=== PATIENT | female | born 1970 | race Caucasian/White ===

== ENCOUNTER 2016-02-21 01:28 | Emergency (ER) | payer OTHER, MEDICAID ==
[~2016-02-21] VITALS: Ht 157.5 cm; Wt 68.8 kg
[2016-02-21 01:32] VITALS: BP 115/82; PULSE 100; RESP 18; TEMP 98.1; O2SAT 98
--- NOTE | 2016-02-21 02:00 | PD ---
HPI Chief Complaint: Fall Time Seen by Provider: 01:49 Travel History International Travel<30 days: Yes Contact w/Intl Traveler<30days: Yes Traveled to known affect area: Yes History of Present Illness HPI The patient is a 45-year-old female who tripped and fell at approximately 1:00 this morning. She fell on her left arm and complains of left shoulder and left wrist pain. She denies any elbow pain. She denies any previous fracture/ surgery to the left shoulder or left wrist. She denies any C-spine, T-spine or LS-spine pain. She feels numbness over the entire arm below the shoulder. She apparently was drinking Capt. Murali mejia. [facility] Past Medical History Medical History: Denies Significant Hx Diminished Hearing: No Tetanus Vaccination: Unknown Influenza Vaccination: No ?: Unknown LMP: 01/21/16 Tubal Ligation: Yes Past Surgical History Surgical History: No Previous Surgery Social History Alcohol Use: Yes (ETOH TONIGHT) Tobacco Use: Yes (1 PPD) Substance Use: No Allergies-Medications (Allergen,Severity, Reaction): Coded Allergies: No Known Allergies (Unverified , 02/21/16) Reported Meds & Prescriptions Reported Meds & Active Scripts Active No Active Prescriptions or Reported Medications Review of Systems Except as stated in HPI: all other systems reviewed are Neg Physical Exam Narrative GENERAL: Well-nourished, well-developed patient in moderate apparent distress with her left shoulder pain. Her vital signs show heart rate of 100 but otherwise normal. She smells strongly of rum. She answers questions quickly and appropriately. SKIN: Warm and dry. HEAD: Normocephalic. EYES: No scleral icterus. No injection or drainage. NECK: Supple, trachea midline. No JVD or lymphadenopathy. CARDIOVASCULAR: Regular rate and rhythm without murmurs, gallops, or rubs. RESPIRATORY: Breath sounds equal bilaterally. No accessory muscle use. GASTROINTESTINAL: Abdomen soft, non-tender, nondistended. MUSCULOSKELETAL: No cyanosis, or edema. No deformity is noted but there is decreased/absent pinprick on the radial aspect of her forearm/hand. She has normal extension of all her fingers, wrist and thumb. There is tenderness and minimal swelling around the proximal humerus. The left wrist shows tenderness over the entire wrist. Good capillary refill and pinprick is present. BACK: Nontender without obvious deformity. No CVA tenderness. Data Data Last Documented VS Vital Signs Date Time Temp Pulse Resp B/P Pulse Ox O2 Delivery O2 Flow Rate FiO2 02/21/16 01:51 20 02/21/16 01:32 98.1 100 115/82 98 Orders Humerus (Min 2vws) (02/21/16 ) Splint Or Brace Apply/Monitor (02/21/16 02:21) Wrist, Limited (Ap&Lat) (02/21/16 01:53) Shoulder, Limited(2vws) (02/21/16 01:53) Oxycodone-Acetamin 10-325 Mg (Percocet 1 (02/21/16 02:45) Splint Or Brace Apply/Monitor (02/21/16 03:11) MDM Medical Decision Making Medical Screen Exam Complete: Yes Emergency Medical Condition: Yes Medical Record Reviewed: Yes Interpretation(s) X-rays of the left humerus show an acute spiral fracture the humerus which shows no angulation or distraction. X-rays of the wrist show no fracture. Differential Diagnosis Fracture humerus, contusion humerus, fracture wrist, contusion rest, radial nerve damage, sprain wrist Narrative Course The patient has a spiral fracture of the humerus. She does have some decreased sensation along the radial nerve area but no motor loss of the radial nerve. She has good capillary refill in apparent good vascularity distally. Plan: The patient is to follow-up with Dr. Herbert Bean in his office later on today. I was unable to contact him tonight, he may be in surgery. Diagnosis Primary Impression: Spiral fracture of shaft of humerus Additional Impression: Left wrist sprain Additional Instructions: Give Dr. Bean's office a call later on this morning to set up an appointment. Tell the office staff electric fork operator that he would like to be seen today because you do have some numbness in the radial nerve area of your arm/ hand. Do not drink alcohol or drive on the Percocet 7.5. Med/Other Pt SpecificInfo: Prescription(s) given Scripts Oxycodone-Acetaminophen (Percocet)7.5-325 mg Tab1 Tab PO Q4H PRN (PAIN) #28 TAB Ref 0 Prov:Carloz Quezada MD 02/21/16 Disposition: 01 DISCHARGE HOME Condition: Stable Carloz Quezada MD Feb 21, 2016 02:00
[2016-02-21 02:30] VITALS: BP 120/76; PULSE 88; RESP 20; O2SAT 99
[2016-02-21] MEDS ORDERED: oxyCODONE/ACETAMINOPHEN 10 MG/325 MG TAB PO ONE (02:45)
--- NOTE | 2016-02-21 02:53 | RADHPO ---
EXAM DATE/TIME: 02/21/2016 02:14 [facility] COMPARISON: No previous studies available for comparison. INDICATIONS : Left proximal to mid-shaft humerus pain post fall today MEDICAL HISTORY : None. SURGICAL HISTORY : None. ENCOUNTER: Initial ACUITY: 1 day PAIN SCORE: 10/10 LOCATION: Left proximal to mid-shaft humerus FINDINGS: Acute small fracture the proximal humeral metadiaphysis. No angulation or distraction. No intra-artic ular extension. Soft tissues are unremarkable. CONCLUSION: Acute spiral fracture of the humerus. Obinna Pan Jr., MD on February 21, 2016 at 2:52 Board Certified Radiologist. This report was verified electronically.
--- NOTE | 2016-02-21 02:53 | RADHPO ---
EXAM DATE/TIME: 02/21/2016 02:01 [facility] COMPARISON: No previous studies available for comparison. INDICATIONS : Left shoulder pain post fall today MEDICAL HISTORY : None. SURGICAL HISTORY : None. ENCOUNTER: Initial ACUITY: 1 day PAIN SCORE: 10/10 LOCATION: Left proximal humerus FINDINGS: An acute small fracture involving the proximal humeral metadiaphysis. No angulation or distraction. S houlder joint is otherwise unremarkable. CONCLUSION: Acute proximal humeral fracture. Obinna Pan Jr., MD on February 21, 2016 at 2:51 Board Certified Radiologist. This report was verified electronically.
--- NOTE | 2016-02-21 02:54 | RADHPO ---
EXAM DATE/TIME: 02/21/2016 02:14 [facility] COMPARISON: No previous studies available for comparison. INDICATIONS : Left wrist pain post fall 1 hour ago MEDICAL HISTORY : None. SURGICAL HISTORY : None. ENCOUNTER: Initial ACUITY: 1 day PAIN SCORE: 4/10 LOCATION: Left entire wrist FINDINGS: Two view examination of the left wrist demonstrates no soft tissue swelling, dislocation, or fracture . The joint spaces are maintained. Bony mineralization is normal. CONCLUSION: Unremarkable limited examination of the left wrist. Obinna Pan Jr., MD on February 21, 2016 at 2:52 Board Certified Radiologist. This report was verified electronically.
[2016-02-21] MEDS ORDERED: PERC7.5T13 PO (03:32)
[2016-02-21 03:53] VITALS: BP 122/81
== END 2016-02-21 03:57 | disposition home or self-care (01) ==
LOC: PHED 01:28
DX: S42.342A Displaced spiral fracture of shaft of humerus, left arm, initial encounter for closed fracture (principal); W01.0XXA Fall on same level from slipping, tripping and stumbling without subsequent striking against object, initial encounter; Y93.9 Activity, unspecified; Y92.9 Unspecified place or not applicable; Y99.9 Unspecified external cause status; S63.502A Unspecified sprain of left wrist, initial encounter
CPT/HCPCS: 73030; 73060; 73100; 99283